=== PATIENT | female | born 1965 | race Caucasian/White ===

== ENCOUNTER 2019-04-23 09:40 | Inpatient (IN) | payer BC ==
[2019-04-23 10:29] VITALS: BMI 15.7
--- NOTE | 2019-04-23 11:29 | HP ---
CIWA Score Nausea/Vomitin Muscle Tremors: 3 Anxiety: 2 Agitation: 3 Paroxysmal Sweats: 1-Minimal Palms Moist Orientation: 0-Oriented Tacttile Disturbances: 1-Very Mild Itch/Numbness Auditory Disturbances: 0-None Visual Disturbances: 0-None Headache: 2-Mild CIWA-Ar Total Score: 14 - Admission Criteria OASAS Guidelines: Admission for Medically Managed Detox: Requires at least one of the followin. CIWA greater than 12 2. Seizures within the past 24 hours 3. Delirium tremens within the past 24 hours 4. Hallucinations within the past 24 hours 5. Acute intervention needed for co occurring medical disorder 6. Acute intervention needed for co occurring psychiatric disorder 7. Severe withdrawal that cannot be handled at a lower level of care (continued vomiting, continued diarrhea, abnormal vital signs) requiring intravenous medication and/or fluids 8. 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: Seizure (last 1 month ago) ...LMP: 04/09/14 ...: No - Past Surgical History Past Surgical History: Yes: Joint Replacement (bilateral knee replacement bilaterl hip replacement) - Smoking History Smoking history: Current every day smoker Have you smoked in the past 12 months: Yes Aproximately how many cigarettes per day: 5 - Alcohol/Substance Use Hx Alcohol Use: Yes History of Substance Use: reports: Heroin Date of Last Use: 04/22/19 - Social History Usual Living Arrangement: Yes: Other (common law ) Occupation: unemployed History of Recent Travel: No Admission ROS [facility] - HPI Chief Complaint: I am here to get my life better Allergies/Adverse Reactions: Allergies Allergy/AdvReac Type Severity Reaction Status Date / Time Penicillins Allergy Severe Difficulty Verified 04/23/19 10:25 Breathing History of Present Illness: this 54 years old female with alcohol dependence,heroin abused,seeking help, last seen in [facility] last night, denied syncope seizure last 1 month ago nicotine dependence 5 cigarette/day last detox 2016 did not recall the facility no significant period of sobriety Exam Limitations: No Limitations - Ebola screening Have you traveled outside of the country in the last 21 days: No Have you had contact with anyone from an Ebola affected area: No Have you been sick,other than usual withdrawal symptoms: No Do you have a fever: No - Review of Systems Constitutional: Loss of Appetite, Malaise, Night Sweats, Changes in sleep, Weakness, Unintentional Wgt. Loss EENT: reports: Nose Congestion Respiratory: reports: No Symptoms reported Cardiac: reports: Palpitations GI: reports: Nausea, Poor Appetite, Abdominal cramping : reports: No Symptoms Reported Musculoskeletal: reports: Back Pain, Muscle Pain Integumentary: reports: Dryness Neuro: reports: Tremors Endocrine: reports: No Symptoms Reported Hematology: reports: No Symptoms Reported Psychiatric: reports: No Sypmtoms Reported, Judgement Intact, Mood/Affect Appropiate, Orientated x3 Other Systems: Reviewed and Negative Patient History - Patient Medical History Hx Anemia: No Hx Asthma: No Hx Chronic Obstructive Pulmonary Disease (COPD): No Hx Cancer: No Hx Cardiac Disorders: No Hx Congestive Heart Failure: No Hx Hypertension: No Hx Hypercholesterolemia: No Hx Pacemaker: No HX Cerebrovascular Accident: No Hx Seizures: Yes (last 1 month ago) Hx Dementia: No Hx Diabetes: No Hx Gastrointestinal Disorders: No Hx Liver Disease: No Hx Genitourinary Disorders: No Hx Sexually Transmitted Disorders: No Hx Renal Disease (ESRD): No Hx Thyroid Disease: No Hx Human Immunodeficiency Virus (HIV): No (last 2017 negtive) Hx Hepatitis C: No Hx Depression: No Hx Suicide Attempt: No Hx Bipolar Disorder: No Hx Schizophrenia: No Other Medical History: no suicidal,no homicidal - Patient Surgical History Past Surgical History: Yes Hx Orthopedic Surgery: Yes (bilateral hips and knees replacement) - PPD History Previous Implant?: Yes Documented Results: Negative w/o proof Implanted On Prior [facility] Admission?: No PPD to be Administered?: Yes - Reproductive History Patient is a Female of Child Bearing Age (11 -55 yrs old): Yes LMP comment: 04/09/2004 Patient : No - Smoking Cessation Smoking history: Current every day smoker Have you smoked in the past 12 months: Yes Aproximately how many cigarettes per day: 5 Cigars Per Day: 0 Hx Chewing Tobacco Use: No Initiated information on smoking cessation: Yes 'Breaking Loose' booklet given: 04/23/19 - Substance & Tx. History Hx Alcohol Use: Yes Hx Substance Use: Yes Substance Use Type: Alcohol, Heroin Hx Substance Use Treatment: Yes (2017 did not recall the facility) - Substances abused Heroin Substance route: Inhalation Frequency: 3-6 times per week Amount used: 2 bags Age of first use: 34 Date of last use: 04/22/19 Alcohol Substance route: Oral Frequency: Daily Amount used: 1 to 2 pints of vodka Age of first use: 14 Date of last use: 04/23/19 Admission Physical Exam [facility] - Vital Signs Vital Signs: Vital Signs - 24 hr 04/23/19 10:26 Temperature 98.0 F Pulse Rate 100 H Respiratory 18 Rate Blood Pressure 121/61 - Physical General Appearance: Yes: Moderate Distress, Tremorous, Irritable, Sweating, Anxious HEENTM: Yes: Normal ENT Inspection, YE, Pharynx Normal Respiratory: Yes: Lungs Clear, Normal Breath Sounds, No Respiratory Distress Neck: Yes: Within Normal Limits, Supple, Trachea in good position Breast: Yes: Breast Exam Deferred Cardiology: Yes: Tachycardia Abdominal: Yes: Within Normal Limits, Normal Bowel Sounds, Non Tender, Soft Genitourinary: Yes: Within Normal Limits Back: Yes: Muscle Spasm Musculoskeletal: Yes: Back pain, Muscle Pain Extremities: Yes: Tremors, Other (scar both knees and both hips) 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 intact, Fully Oriented, Alert, Motor Strength 5/5 Integumentary: Yes: Dry Lymphatic: Yes: Within Normal Limits - Diagnostic (1) Alcohol dependence with uncomplicated withdrawal Current Visit: Yes Status: Acute (2) Heroin abuse Current Visit: Yes Status: Acute (3) Seizure Current Visit: Yes Status: Acute (4) Nicotine dependence Current Visit: Yes Status: Acute (5) Weight loss Current Visit: Yes Status: Acute (6) Dehydration Current Visit: Yes Status: Acute (7) History of bilateral knee replacement Current Visit: Yes Status: Acute (8) Hx of bilateral hip replacements Current Visit: Yes Status: Acute Cleared for Admission [facility] - Detox or Rehab [facility] Level of Care: Medically Managed Detox Regimen/Protocol: Librium Breathalyzer - Breathalyzer Breathalyzer: 0.086 Urine Drug Screen - Test Device Lot number: [id number] Expiration date: 01/22/21 - Control Is test valid?: Yes - Results Drug screen NEGATIVE: No Urine drug screen results: MOP-Opiates Inpatient Rehab Admission - Rehab Decision to Admit Inpatient rehab admission?: No
[2019-04-23] MEDS ORDERED: BISMUTH SUBSALICYLATE 524 MG/30 ML UD PO PRN (11:43)
[2019-04-23] MEDS ORDERED: MAG HYDROX/AL HYDROX/SIMETH 30 ML UNIT-DOSE CUP PO PRN (11:43)
[2019-04-23] MEDS ORDERED: MAGNESIUM HYDROX 2400MG/30ML ORAL SUSPENSION 30 ML CUP PO PRN (11:43)
[2019-04-23] MEDS ORDERED: ACETAMINOPHEN 325 MG TABLET (FP) PO PRN (11:43)
[2019-04-23] MEDS ORDERED: chlordiazePOXIDE HCL 10 MG CAPSULE PO PRN (11:43)
[2019-04-23] MEDS ORDERED: MENTHOL/PHENOL 1 EACH UD MM PRN (11:43)
[2019-04-23] MEDS ORDERED: hydrOXYzine PAMOATE 25 MG CAPSULE (FP) PO PRN (11:43)
[2019-04-23] MEDS ORDERED: MAGNESIUM CITRATE 300 ML BOTTLE PO PRN (11:43)
--- NOTE | 2019-04-23 13:11 | EKG ---
Test Reason : Blood Pressure : / mmHG Vent. Rate : 061 BPM Atrial Rate : 061 BPM P-R Int : 118 ms QRS Dur : 088 ms QT Int : 444 ms P-R-T Axes : 071 -48 029 degrees QTc Int : 446 ms NORMAL SINUS RHYTHM LEFT ANTERIOR FASCICULAR BLOCK ABNORMAL ECG NO PREVIOUS ECGS AVAILABLE Confirmed by ARMIDA MCGREGOR MD ([id number]) on 04/23/2019 1:11:01 PM Referred By: Confirmed By:ARMIDA MCGREGOR MD
[2019-04-23] MEDS: chlordiazePOXIDE HCL 25 MG CAPSULE PO SCH ×2 (13:47→22:22)
[2019-04-23] MEDS: cloNIDine HCL 0.1 MG TABLET PO SCH (22:22)
[2019-04-23] MEDS: THIAMINE HCL 100 MG TABLET (FP) PO SCH (22:22)
[2019-04-24] MEDS: chlordiazePOXIDE HCL 25 MG CAPSULE PO SCH ×3 (05:58→22:25)
[2019-04-24 09:23] LABS: HEMATOCRIT 44.4 % (32.4-45.2); HEMOGLOBIN 15.2 GM/dL (10.7-15.3); MCH 31.8 pg (25.7-33.7); MCHC 34.2 g/dl (32.0-36.0); MEAN CELL VOLUME 92.9 fl (80-96); MEAN PLT VOLUME 9.4 fl (7.5-11.1); PLATELET COUNT 154 K/MM3 (134-434); RBC 4.78 M/mm3 (3.60-5.2); RDW 14.2 % (11.6-15.6); WHITE BLOOD COUNT 4.3 K/mm3 (4.0-10.0)
[2019-04-24 09:33] LABS: ALBUMIN 3.5 g/dl (3.4-5.0); BILIRUBIN,TOTAL 0.8 mg/dL (0.2-1); BLOOD UREA NITROGEN 17.3 mg/dL (7-18); CREATININE 0.6 mg/dL (0.55-1.3); POTASSIUM 3.9 mmol/L (3.5-5.1); TOT PROT 6.7 g/dl (6.4-8.2)
--- NOTE | 2019-04-24 10:00 | PN ---
S CIWA - CIWA Score Nausea/Vomitin-Mild Nausea/No Vomiting Muscle Tremors: 2 Anxiety: 3 Agitation: 4-Moderately Restless Paroxysmal Sweats: 2 Orientation: 0-Oriented Tacttile Disturbances: 0-None Auditory Disturbances: 0-None Visual Disturbances: 0-None Headache: 1-Very Mild CIWA-Ar Total Score: 13 [facility] Progress Note (SOAP) Subjective: 54 years old female admitted on 04/23/19 for alcohol withdrawal sx management treating with librium detox regiment ambulating in room with wheelchair in wheelchair x 4 years new wheelchair x 2 months patient is alert speech clearly irritable and agitative Objective: 04/24/19 10:01 Vital Signs Temperature 97.6 F 04/24/19 05:54 Pulse Rate 72 04/24/19 05:54 Respiratory Rate 18 04/24/19 05:54 Blood Pressure 99/59 L 04/24/19 05:54 O2 Sat by Pulse Oximetry (%) Laboratory Last Values WBC 4.3 K/mm3 (4.0-10.0) 04/24/19 07:30 RBC 4.78 M/mm3 (3.60-5.2) 04/24/19 07:30 Hgb 15.2 GM/dL (10.7-15.3) 04/24/19 07:30 Hct 44.4 % (32.4-45.2) 04/24/19 07:30 MCV 92.9 fl (80-96) 04/24/19 07:30 MCH 31.8 pg (25.7-33.7) 04/24/19 07:30 MCHC 34.2 g/dl (32.0-36.0) 04/24/19 07:30 RDW 14.2 % (11.6-15.6) 04/24/19 07:30 Plt Count 154 K/MM3 (134-434) 04/24/19 07:30 MPV 9.4 fl (7.5-11.1) 04/24/19 07:30 Sodium 140 mmol/L (136-145) 04/24/19 07:30 Potassium 3.9 mmol/L (3.5-5.1) 04/24/19 07:30 Chloride 106 mmol/L (98-107) 04/24/19 07:30 Carbon Dioxide 28 mmol/L (21-32) 04/24/19 07:30 Anion Gap 6 MMOL/L (8-16) L 04/24/19 07:30 BUN 17.3 mg/dL (7-18) 04/24/19 07:30 Creatinine 0.6 mg/dL (0.55-1.3) 04/24/19 07:30 Est GFR (CKD-EPI)AfAm 118.93 04/24/19 07:30 Est GFR (CKD-EPI)NonAf 102.61 04/24/19 07:30 Random Glucose 105 mg/dL (74-106) 04/24/19 07:30 Calcium 9.0 mg/dL (8.5-10.1) 04/24/19 07:30 Total Bilirubin 0.8 mg/dL (0.2-1) 04/24/19 07:30 AST 18 U/L (15-37) 04/24/19 07:30 ALT 20 U/L (13-61) 04/24/19 07:30 Alkaline Phosphatase 91 U/L (45-117) 04/24/19 07:30 Total Protein 6.7 g/dl (6.4-8.2) 04/24/19 07:30 Albumin 3.5 g/dl (3.4-5.0) 04/24/19 07:30 lab noted Assessment: 04/24/19 10:01 alcohol withdrawal Plan: librium regiment
[2019-04-24] MEDS: cloNIDine HCL 0.1 MG TABLET PO SCH ×2 (10:31→22:24)
[2019-04-24] MEDS: PRENATAL VITAMINS W/ FOLIC ACID TABLET (FP) PO SCH (10:31)
[2019-04-24] MEDS: IBUPROFEN 400 MG TABLET (FP) PO PRN (12:40)
[2019-04-24] MEDS: METHOCARBAMOL 500 MG TABLET PO PRN ×2 (12:40→22:25)
--- NOTE | 2019-04-24 15:47 | CONSULT ---
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 Patient stated, "I'm too tired to talk." Psychiatric consultation refused.
[2019-04-24] MEDS: THIAMINE HCL 100 MG TABLET (FP) PO SCH (22:24)
[2019-04-24] MEDS: MELATONIN 5 MG TABLETS PO PRN (22:25)
[2019-04-25] MEDS: ACETAMINOPHEN 325 MG TABLET (FP) PO PRN ×2 (05:56→16:57)
[2019-04-25] MEDS: chlordiazePOXIDE 5 MG CAPSULE PO SCH ×3 (05:57→21:03)
[2019-04-25] MEDS ORDERED: METHOCARBAMOL 500 MG TABLET PO ONE (09:14)
[2019-04-25] MEDS: cloNIDine HCL 0.1 MG TABLET PO SCH ×2 (10:04→21:04)
--- NOTE | 2019-04-25 10:04 | PN ---
[facility] CIWA - CIWA Score Nausea/Vomitin-No Nausea/No Vomiting Muscle Tremors: 2 Anxiety: 4-Mod. Anxious/Guarded Agitation: 3 Paroxysmal Sweats: 1-Minimal Palms Moist Orientation: 0-Oriented Tacttile Disturbances: 0-None Auditory Disturbances: 0-None Visual Disturbances: 0-None Headache: 0-None Present CIWA-Ar Total Score: 10 S Progress Note (SOAP) Subjective: 54 years old female admitted on 04/23/19 for alcohol withdrawal sx management treating with librum detox regiment ambulating with own wheelchair reports right knee and hip pain can not sleep at night muscle ache round the knee replacement area robaxin 500 mg po x 1 belsomra 5 mg po x 1 Objective: 04/25/19 10:03 Vital Signs Temperature 97.6 F 04/25/19 08:33 Pulse Rate 54 L 04/25/19 08:33 Respiratory Rate 18 04/25/19 08:33 Blood Pressure 103/64 04/25/19 08:33 O2 Sat by Pulse Oximetry (%) Laboratory Last Values WBC 4.3 K/mm3 (4.0-10.0) 04/24/19 07:30 RBC 4.78 M/mm3 (3.60-5.2) 04/24/19 07:30 Hgb 15.2 GM/dL (10.7-15.3) 04/24/19 07:30 Hct 44.4 % (32.4-45.2) 04/24/19 07:30 MCV 92.9 fl (80-96) 04/24/19 07:30 MCH 31.8 pg (25.7-33.7) 04/24/19 07:30 MCHC 34.2 g/dl (32.0-36.0) 04/24/19 07:30 RDW 14.2 % (11.6-15.6) 04/24/19 07:30 Plt Count 154 K/MM3 (134-434) 04/24/19 07:30 MPV 9.4 fl (7.5-11.1) 04/24/19 07:30 Sodium 140 mmol/L (136-145) 04/24/19 07:30 Potassium 3.9 mmol/L (3.5-5.1) 04/24/19 07:30 Chloride 106 mmol/L (98-107) 04/24/19 07:30 Carbon Dioxide 28 mmol/L (21-32) 04/24/19 07:30 Anion Gap 6 MMOL/L (8-16) L 04/24/19 07:30 BUN 17.3 mg/dL (7-18) 04/24/19 07:30 Creatinine 0.6 mg/dL (0.55-1.3) 04/24/19 07:30 Est GFR (CKD-EPI)AfAm 118.93 04/24/19 07:30 Est GFR (CKD-EPI)NonAf 102.61 04/24/19 07:30 Random Glucose 105 mg/dL (74-106) 04/24/19 07:30 Calcium 9.0 mg/dL (8.5-10.1) 04/24/19 07:30 Total Bilirubin 0.8 mg/dL (0.2-1) 04/24/19 07:30 AST 18 U/L (15-37) 04/24/19 07:30 ALT 20 U/L (13-61) 04/24/19 07:30 Alkaline Phosphatase 91 U/L (45-117) 04/24/19 07:30 Total Protein 6.7 g/dl (6.4-8.2) 04/24/19 07:30 Albumin 3.5 g/dl (3.4-5.0) 04/24/19 07:30 RPR Titer Nonreactive (NONREACTIVE) 04/24/19 07:30 HIV 1&2 Antibody Screen Negative 04/24/19 07:30 HIV P24 Antigen Negative 04/24/19 07:30 lab noted Assessment: 04/25/19 10:03 alcohol withdrawal Plan: librium regiment
[2019-04-25] MEDS: PRENATAL VITAMINS W/ FOLIC ACID TABLET (FP) PO SCH (10:05)
[2019-04-25] MEDS: METHOCARBAMOL 500 MG TABLET PO PRN ×2 (13:55→21:06)
[2019-04-25] MEDS: IBUPROFEN 400 MG TABLET (FP) PO PRN (13:55)
[2019-04-25] MEDS: THIAMINE HCL 100 MG TABLET (FP) PO SCH (21:03)
[2019-04-25] MEDS: MELATONIN 5 MG TABLETS PO PRN (21:08)
[2019-04-25] MEDS ORDERED: SUVOREXANT 5 MG TABLET PO SCH (22:00)
[2019-04-26] MEDS ORDERED: chlordiazePOXIDE HCL 10 MG CAPSULE PO PRN
[2019-04-26] MEDS ORDERED: chlordiazePOXIDE HCL 10 MG CAPSULE PO SCH (05:00)
[2019-04-26 06:16] VITALS: BP 107/66; PULSE 50; TEMP 97.6
--- NOTE | 2019-04-26 14:55 | DS ---
[facility] Detox Discharge Summary Admission Date: 04/23/19 Discharge Date: 04/26/19 - History Present History: Alcohol Dependence Additional Comments: 54 years old female admitted on 04/23/19 for alcohol withdrawal sx management treated with labium detox regiment feeling better today prefers to leave the detox unit as one day early as estimated discharge date on 04/27/19 alert oriented x 3 ambulating with wheelchair cardiac s1s2 regular rate rhythm ekg indicates left fascicule block asymptomatic denies chest pain no dizziness no shortness of breath respiratory clear lungs bilaterally on auscultation skin warm and dry Pertinent Past History: time for discharge 35 minutes - Physical Exam Results Vital Signs: Vital Signs Temperature 97.6 F 04/26/19 06:16 Pulse Rate 50 L 04/26/19 06:16 Respiratory Rate 18 04/26/19 06:16 Blood Pressure 107/66 04/26/19 06:16 O2 Sat by Pulse Oximetry (%) Pertinent Admission Physical Exam Findings: alcohol withdrawal Laboratory Last Values WBC 4.3 K/mm3 (4.0-10.0) 04/24/19 07:30 RBC 4.78 M/mm3 (3.60-5.2) 04/24/19 07:30 Hgb 15.2 GM/dL (10.7-15.3) 04/24/19 07:30 Hct 44.4 % (32.4-45.2) 04/24/19 07:30 MCV 92.9 fl (80-96) 04/24/19 07:30 MCH 31.8 pg (25.7-33.7) 04/24/19 07:30 MCHC 34.2 g/dl (32.0-36.0) 04/24/19 07:30 RDW 14.2 % (11.6-15.6) 04/24/19 07:30 Plt Count 154 K/MM3 (134-434) 04/24/19 07:30 MPV 9.4 fl (7.5-11.1) 04/24/19 07:30 Sodium 140 mmol/L (136-145) 04/24/19 07:30 Potassium 3.9 mmol/L (3.5-5.1) 04/24/19 07:30 Chloride 106 mmol/L (98-107) 04/24/19 07:30 Carbon Dioxide 28 mmol/L (21-32) 04/24/19 07:30 Anion Gap 6 MMOL/L (8-16) L 04/24/19 07:30 BUN 17.3 mg/dL (7-18) 04/24/19 07:30 Creatinine 0.6 mg/dL (0.55-1.3) 04/24/19 07:30 Est GFR (CKD-EPI)AfAm 118.93 04/24/19 07:30 Est GFR (CKD-EPI)NonAf 102.61 04/24/19 07:30 Random Glucose 105 mg/dL (74-106) 04/24/19 07:30 Calcium 9.0 mg/dL (8.5-10.1) 04/24/19 07:30 Total Bilirubin 0.8 mg/dL (0.2-1) 04/24/19 07:30 AST 18 U/L (15-37) 04/24/19 07:30 ALT 20 U/L (13-61) 04/24/19 07:30 Alkaline Phosphatase 91 U/L (45-117) 04/24/19 07:30 Total Protein 6.7 g/dl (6.4-8.2) 04/24/19 07:30 Albumin 3.5 g/dl (3.4-5.0) 04/24/19 07:30 POC Urine HCG, Qual Negative 04/23/19 10:16 RPR Titer Nonreactive (NONREACTIVE) 04/24/19 07:30 HIV 1&2 Antibody Screen Negative 04/24/19 07:30 HIV P24 Antigen Negative 04/24/19 07:30 lab noted - Treatment Hospital Course: Detox Protocol Followed, Detoxed Safely, Responded well, Discharged Condition Good, Rehab Referral Accepted Patient [facility] Accept[facility] - Medication Discharge Medications: Ambulatory Orders Tizanidine HCl 4 mg PO BID 04/23/19 - Diagnosis (1) Alcohol dependence with uncomplicated withdrawal Status: Acute (2) Nicotine dependence Status: Acute Qualifiers: Nicotine product type: cigarettes Substance use status: in withdrawal Qualified Code(s): F17.213 - Nicotine dependence, cigarettes, with withdrawal (3) Weight loss Status: Chronic - AMA Did Patient Leave Against Medical Advice: No CIWA Score - CIWA Score Nausea/Vomitin-No Nausea/No Vomiting Muscle Tremors: 1-None Visible, but [place] Anxiety: 2 Agitation: 1-Slight > Activity Paroxysmal Sweats: No Perspiration Orientation: 0-Oriented Tacttile Disturbances: 0-None Auditory Disturbances: 0-None Visual Disturbances: 0-None Headache: 0-None Present CIWA-Ar Total Score: 4
[2019-04-27] MEDS ORDERED: chlordiazePOXIDE HCL 10 MG CAPSULE PO ONE (05:00)
== END 2019-04-26 09:08 | disposition home or self-care (01) | DRG 775 ==
LOC: YASAS 09:40 → Y3N 11:54
PROVIDERS: ADMIT Allergy & Immunology; ATTEND Allergy & Immunology
PROC: HZ2ZZZZ Detoxification Services for Substance Abuse Treatment (ICD-10-PCS; principal; 2019-04-23)
DX: F10.230 Alcohol dependence with withdrawal, uncomplicated (principal); F17.213 Nicotine dependence, cigarettes, with withdrawal; M25.561 Pain in right knee; M25.551 Pain in right hip; R63.4 Abnormal weight loss; Z68.1 Body mass index [BMI] 19.9 or less, adult; Z88.0 Allergy status to penicillin; Z99.3 Dependence on wheelchair
CPT/HCPCS: 36415; 80053; 81025; 85027; 86593; 87389; 93005; 93010; J0735